=== PATIENT | female | born 1955 | race Caucasian/White ===

== ENCOUNTER 2017-12-09 20:30 | Emergency (ER) | payer MEDICARE ==
[~2017-12-09] VITALS: Ht 167.6 cm; Wt 65.8 kg
[2017-12-09 20:35] VITALS: BP 107/83
== END 2017-12-09 22:51 | disposition home or self-care (01) ==
LOC: ER 20:35
DX: R21 Rash and other nonspecific skin eruption (principal); F32.9 Major depressive disorder, single episode, unspecified; M79.7 Fibromyalgia; Z76.0 Encounter for issue of repeat prescription; Z88.0 Allergy status to penicillin; Z60.2 Problems related to living alone
CPT/HCPCS: A4606; Z7610